=== PATIENT | male | born 1995 | race Two or more races ===

== ENCOUNTER 2018-08-20 22:42 | Emergency (ER) | payer SELFPAY ==
[~2018-08-20] VITALS: Ht 167.6 cm; Wt 76.7 kg
[2018-08-20 22:56] VITALS: BP 142/83
--- NOTE | 2018-08-20 23:21 | RAD ---
AP chest. HISTORY: Chest pain AP view was taken of the chest. Lungs are clear. Heart is normal in size. There is no pleural effusion. IMPRESSION: 1. No acute chest disease. Electronically signed by: Jef Berry MD (08/20/2018 11:18 PM) [facility]
[2018-08-20] MEDS ORDERED: NAPR-514 PO (23:22)
--- NOTE | 2018-08-20 23:22 | PHYS DOC ---
Past Medical History Past Medical History: No Pertinent History Past Surgical History: No Surgical History Alcohol Use: None Drug Use: None Adult General Chief Complaint Chief Complaint: CHEST PAIN HPI HPI Patient is a 22-year-old otherwise healthy male who was working out with [employer] when he suddenly developed sharp left-sided chest pain. He states he had some associated shortness of breath. He states depending upon the way he moves he has a lot of pain. He denies any cough or congestion. He denies dyspnea on exertion. He states this has not happened before. He denied any palpitations[] Review of Systems Review of Systems Constitutional: Denies fever or chills [] Eyes: Denies change in visual acuity, redness, or eye pain [] HENT: Denies nasal congestion or sore throat [] Respiratory: Denies cough or shortness of breath [] Cardiovascular: No additional information not addressed in HPI [] GI: Denies abdominal pain, nausea, vomiting, bloody stools or diarrhea [] : Denies dysuria or hematuria [] Musculoskeletal: Denies back pain or joint pain [] Integument: Denies rash or skin lesions [] Neurologic: Denies headache, focal weakness or sensory changes [] Endocrine: Denies polyuria or polydipsia [] All other systems were reviewed and found to be within normal limits, except as documented in this note. Allergies Allergies Allergies Coded Allergies Type Severity Reaction Last Updated Verified No Known Drug Allergies 08/20/18 No Physical Exam Physical Exam Constitutional: Well developed, well nourished, no acute distress, non-toxic appearance. [] HENT: Normocephalic, atraumatic, bilateral external ears normal, oropharynx moist, no oral exudates, nose normal. [] Eyes: PERRLA, EOMI, conjunctiva normal, no discharge. [] Neck: Normal range of motion, no tenderness, supple, no stridor. [] Cardiovascular:Heart rate regular rhythm, no murmur [] Lungs & Thorax: Left anterior lateral chest is tender to palp which reproduces symptoms[] Abdomen: Bowel sounds normal, soft, no tenderness, no masses, no pulsatile masses. [] Skin: Warm, dry, no erythema, no rash. [] Back: No tenderness, no CVA tenderness. [] Extremities: No tenderness, no cyanosis, no clubbing, ROM intact, no edema. [] Neurologic: Alert and oriented X 3, normal motor function, normal sensory function, no focal deficits noted. [] Psychologic: Anxious. [] Current Patient Data Vital Signs Vital Signs Date Time Temp Pulse Resp B/P (MAP) Pulse Ox O2 Delivery O2 Flow Rate FiO2 08/20/18 22:56 98.1 87 16 142/83 (102) 96 Room Air 98.1 EKG EKG [EKG: Normal sinus rhythm rate of 79 right bundle-branch block no obvious ischemic ST-T changes] Radiology/Procedures Radiology/Procedures [] Impressions: Chest x-ray: No acute findings as interpreted by me Course & Med Decision Making Course & Med Decision Making Pertinent Labs and Imaging studies reviewed. (See chart for details) [] Dragon Disclaimer Dragon Disclaimer This electronic medical record was generated, in whole or in part, using a voice recognition dictation system. Departure Departure Impression: Primary Impression: Musculoskeletal chest pain Disposition: HOME, SELF-CARE Condition: STABLE Patient Instructions: Chest Wall Pain Additional Instructions: Return to the emergency department with any new or concerning symptoms Scripts Naproxen (NAPROXEN) 500 Mg Tablet 1 TAB PO BID PRN for PAIN, #30 TAB 1 Refill Prov: FELICITY FIELDS DO 08/20/18 FELICITY FIELDS DO Aug 20, 2018 23:22
--- NOTE | 2018-08-21 09:36 | EKG ---
[facility] [address] [place] [address] Test Date: 2018-08-20 Test Time: 22:50:52 Pat Name: CHANA QUINTERO Department: Room: Gender: M Date Pitter: : [id number] Requested By: FELICITY FIELDS Order Number: [id number] Reading MD: Measurements Intervals [place] Rate: 79 P: 40 MO: 144 QRS: 62 QRSD: 94 T: 31 QT: 336 QTc: 386 Interpretive Statements SINUS RHYTHM INCOMPLETE RIGHT BUNDLE BRANCH BLOCK RVH WITH REPOLARIZATION ABNORMALITY ABNORMAL ECG RI6.01 Unconfirmed report No previous ECG available for comparison
== END 2018-08-20 23:35 | disposition home or self-care (01) ==
LOC: ER 22:42
DX: R07.89 Other chest pain (principal); I45.10 Unspecified right bundle-branch block; R06.02 Shortness of breath
CPT/HCPCS: 71045; 93005; 99284-25